=== PATIENT | female | born 1935 | race Caucasian/White ===

== ENCOUNTER 2019-01-23 12:21 | Emergency (ER) | payer MEDICARE, BC ==
[~2019-01-23] VITALS: Ht 167.6 cm; Wt 63.0 kg
[~2019-01-23 12:21] MED LIST: ASPI-1265 PO; CHOL100046 PO; DABI150C PO; DIGO125T97 PO; HYDR-4353 PO; LEFL20TA PO; MELO7.5T12 PO; PANT-47 PO; PRED2.5T4 PO
[2019-01-23 14:46] LABS: BASOPHILS # (AUTO) 0.1 X10'3 (0-0.2); BASOPHILS % (AUTO) 0.7 % (0-1); EOSINOPHILS # (AUTO) 0.1 X10'3 (0-0.9); EOSINOPHILS % (AUTO) 1.8 % (0-6); HEMOGLOBIN 10.5 g/dl (12.0-16.0); LYMPHOCYTES # (AUTO) 0.6 X10'3 (1.1-4.8); LYMPHOCYTES % (AUTO) 7.6 % (21-51); MEAN CORPUSCULAR HEMOGLOBIN 30.7 PG (27.0-31.0); MEAN CORPUSCULAR HGB CONC 31.8 g/dL (33.0-36.5); MEAN CORPUSCULAR VOLUME 96.7 FL (78-98); MEAN PLATELET VOLUME 7.6 FL (7.4-10.4); MONOCYTES # (AUTO) 0.6 X10'3 (0-0.9); MONOCYTES % (AUTO) 7.4 % (2-12); NEUTROPHILS # (AUTO) 6.7 X10'3 (1.8-7.7); NEUTROPHILS % (AUTO) 82.5 % (42-75); PLATELET COUNT 205 X10'3 (140-440); RED BLOOD COUNT 3.42 X10'6 (4.20-5.60); RED CELL DISTRIBUTION WIDTH 17.4 % (11.5-14.5); WHITE BLOOD COUNT 8.1 X10'3 (4.5-11.0)
[2019-01-23 14:56] LABS: ALANINE AMINOTRANSFERASE 11 U/L (12-78); ALBUMIN 2.6 G/DL (3.4-5.0); ALBUMIN/GLOBULIN RATIO 0.7 (1.1-1.5); ANION GAP 8 (8-16); ASPARTATE AMINO TRANSFERASE 23 U/L (10-37); BILIRUBIN,TOTAL 0.7 MG/DL (0.1-1.0); BLOOD UREA NITROGEN 25 MG/DL (7-18); BUN/CREATININE RATIO 26.3 (6.6-38.0); CALCIUM 9.3 MG/DL (8.5-10.1); CHLORIDE 105 MMOL/L (99-107); CREATININE 0.95 MG/DL (0.40-0.90); GLUCOSE 102 MG/DL (70-104); POTASSIUM 3.9 MMOL/L (3.5-5.1); SODIUM 139 MMOL/L (135-145); TOTAL CARBON DIOXIDE 25.9 MMOL/L (24-32); TOTAL PROTEIN 6.5 G/DL (6.4-8.2); eGFR 56 ML/MIN
[2019-01-23 14:57] LABS: ALKALINE PHOSPHATASE 59 IU/L (46-116)
[2019-01-23 16:21] VITALS: BP 123/78
== END 2019-01-23 16:23 | disposition home or self-care (01) ==
LOC: ER 12:22
DX: R20.0 Anesthesia of skin (principal); R53.1 Weakness; E78.00 Pure hypercholesterolemia, unspecified; Z94.7 Corneal transplant status; Z87.891 Personal history of nicotine dependence; Z98.890 Other specified postprocedural states; Z88.0 Allergy status to penicillin; Z88.8 Allergy status to other drugs, medicaments and biological substances; Z79.82 Long term (current) use of aspirin; Z79.01 Long term (current) use of anticoagulants; Z79.899 Other long term (current) drug therapy
CPT/HCPCS: 36415; 70450; 71045; 80053; 84484; 85025; 93005; 99284

== ENCOUNTER 2019-04-09 22:26 | Inpatient (IN) | payer MEDICARE, BC ==
[~2019-04-09] VITALS: Ht 162.6 cm; Wt 75.0 kg
[2019-04-09 23:15] LABS: ALANINE AMINOTRANSFERASE 13 U/L (12-78); ALBUMIN 2.8 G/DL (3.4-5.0); ALBUMIN/GLOBULIN RATIO 0.7 (1.1-1.5); ALKALINE PHOSPHATASE 58 IU/L (46-116); ANION GAP 11 (8-16); ASPARTATE AMINO TRANSFERASE 19 U/L (10-37); BILIRUBIN,TOTAL 0.8 MG/DL (0.1-1.0); BLOOD UREA NITROGEN 26 MG/DL (7-18); BUN/CREATININE RATIO 21.8 (6.6-38.0); CALCIUM 9.8 MG/DL (8.5-10.1); CHLORIDE 106 MMOL/L (99-107); CREATININE 1.19 MG/DL (0.40-0.90); GLUCOSE 117 MG/DL (70-104); LIPASE 56 U/L (73-393); POTASSIUM 4.3 MMOL/L (3.5-5.1); SODIUM 141 MMOL/L (135-145); TOTAL CARBON DIOXIDE 24.1 MMOL/L (24-32); TOTAL PROTEIN 6.8 G/DL (6.4-8.2); eGFR 43 ML/MIN
[2019-04-09 23:43] LABS: BASOPHILS % (AUTO) 0.4 % (0-1); EOSINOPHILS # (AUTO) 0.1 X10'3 (0-0.9); EOSINOPHILS % (AUTO) 1.3 % (0-6); HEMATOCRIT 37.8 % (35.0-45.0); HEMOGLOBIN 11.7 g/dl (12.0-16.0); LYMPHOCYTES # (AUTO) 0.6 X10'3 (1.1-4.8); MEAN CORPUSCULAR HEMOGLOBIN 30.2 PG (27.0-31.0); MEAN CORPUSCULAR HGB CONC 30.9 g/dL (33.0-36.5); MEAN CORPUSCULAR VOLUME 97.9 FL (78-98); MONOCYTES # (AUTO) 0.7 X10'3 (0-0.9); MONOCYTES % (AUTO) 8.2 % (2-12); NEUTROPHILS # (AUTO) 7.3 X10'3 (1.8-7.7); NEUTROPHILS % (AUTO) 83.1 % (42-75); PLATELET COUNT 203 X10'3 (140-440); RED BLOOD COUNT 3.87 X10'6 (4.20-5.60); RED CELL DISTRIBUTION WIDTH 16.8 % (11.5-14.5); WHITE BLOOD COUNT 8.8 X10'3 (4.5-11.0)
[2019-04-10 00:37] LABS: ETHANOL < 0.010 GM/DL (0.0-0.010)
[2019-04-10] MEDS ORDERED: normal saline 1000ml 1,000 ML IV ONE (01:19)
[2019-04-10] MEDS ORDERED: normal saline 1000ML IV soln IVB ONE (01:20)
--- NOTE | 2019-04-10 01:20 | NUR ---
PT AMBULATED TO BEDSIDE COMMODE. PT O2 DROPPED TO 69% WHILE ON NC 3L. NONREBREATHER PLACED TO 10L AND PT RESATURATED TO 95% AND PT PLACED BACK ON NC @1L. NOTIFIED.
[2019-04-10] MEDS ORDERED: DULO20CA50 PO (01:32)
[2019-04-10] MEDS ORDERED: NORT25CA5 PO (01:32)
[2019-04-10] MEDS ORDERED: LOTE5DRO3 EACHEYE (01:32)
[2019-04-10] MEDS ORDERED: ROSU20TA2 PO (01:32)
[2019-04-10] MEDS ORDERED: VIG0.5OS EACHEYE (01:32)
[2019-04-10] MEDS ORDERED: PRED15SO23 PO (01:32)
[2019-04-10 01:36] LABS: CLARITY,URINE CLEAR (Clear); COLOR,URINE AMBER (Yellow); GLUCOSE, URINE NEGATIVE (Neg); KETONES,URINE 15 mg/dl (Neg); LEUKOCYTE ESTERASE ,URINE NEGATIVE (Neg); NITRITES, URINE NEGATIVE (Neg); OCCULT BLOOD,URINE NEGATIVE (Neg); PROTEIN,URINE TRACE mg/dl (Neg)
[2019-04-10 01:38] LABS: UA COLLECTION TYPE CLN CATCH MIDSTREAM
--- NOTE | 2019-04-10 02:00 | NUR ---
PT O2 DECREASED TO 72%, O2 INCREASED TO 4L. MD MADE AWARE.
[2019-04-10 02:35] LABS: BACTERIA,URINE FEW /HPF (Neg); MUCUS STRANDS MANY /LPF (Neg); RBC,URINE 0-2 /HPF (0-2); SQUAMOUS EPITHELIAL CELL,UR FEW /LPF (FEW); WBC,URINE 0-4 /HPF (0-4)
--- NOTE | 2019-04-10 03:09 | NUR ---
PT SLEEPING IN ROOM. SIDE RAILS UP. WILL CONTINUE TO MONITOR.
[2019-04-10] MEDS ORDERED: potassium CL 10mEq/100ml bag 100 ML IV PRN ×2 (05:10)
[2019-04-10] MEDS ORDERED: magnesium Cl slow-release 64mg tablet PO PRN (05:10)
[2019-04-10] MEDS ORDERED: magnesium 4gm in 100ml NS 100 ML IV PRN (05:10)
[2019-04-10] MEDS ORDERED: ondansetron/PF 4mg/2ml inj IV PRN (05:10)
[2019-04-10] MEDS ORDERED: potassium Cl 20 mEq SR tablet PO PRN ×2 (05:10)
[2019-04-10] MEDS ORDERED: magnesium 2GM in 50ml NS 50 ML IV PRN (05:10)
[2019-04-10] MEDS: normal saline 1000ml 1,000 ML IV SCH ×2 (05:18→15:06)
--- NOTE | 2019-04-10 07:27 | NUR ---
Patients daughter in law Elizabeth ([phone]) called and informed of assigned bed at [id number]
[2019-04-10] MEDS ORDERED: NORT10CA81 PO (07:34)
--- NOTE | 2019-04-10 07:42 | NUR ---
Patient helped to bedside commode with assist X 1. Patients O2 sat dropped to 81% on 4 L after ambulation. 3 minutes of laying in bed patients sats came back up to 95% on 4 L
[2019-04-10] MEDS: K and/or MAG REPLACEMENT MC SCH (08:00)
--- NOTE | 2019-04-10 08:42 | NUR ---
received report from Milan in the ER
[2019-04-10 08:45] VITALS: BP 112/53
[2019-04-10 10:46] LABS: ALANINE AMINOTRANSFERASE 10 U/L (12-78); ALBUMIN 2.6 G/DL (3.4-5.0); ALBUMIN/GLOBULIN RATIO 0.7 (1.1-1.5); ALKALINE PHOSPHATASE 50 IU/L (46-116); ANION GAP 9 (8-16); ASPARTATE AMINO TRANSFERASE 21 U/L (10-37); BILIRUBIN,TOTAL 0.6 MG/DL (0.1-1.0); BLOOD UREA NITROGEN 21 MG/DL (7-18); BUN/CREATININE RATIO 24.1 (6.6-38.0); CALCIUM 9.1 MG/DL (8.5-10.1); CHLORIDE 108 MMOL/L (99-107); CREATININE 0.87 MG/DL (0.40-0.90); GLUCOSE 88 MG/DL (70-104); POTASSIUM 4.1 MMOL/L (3.5-5.1); SODIUM 140 MMOL/L (135-145); TOTAL CARBON DIOXIDE 22.6 MMOL/L (24-32); TOTAL PROTEIN 6.3 G/DL (6.4-8.2); eGFR 62 ML/MIN
[2019-04-10 10:47] LABS: BASOPHILS % (AUTO) 0.9 % (0-1); EOSINOPHILS # (AUTO) 0.1 X10'3 (0-0.9); EOSINOPHILS % (AUTO) 2.3 % (0-6); HEMATOCRIT 36.7 % (35.0-45.0); HEMOGLOBIN 11.5 g/dl (12.0-16.0); LYMPHOCYTES # (AUTO) 0.9 X10'3 (1.1-4.8); LYMPHOCYTES % (AUTO) 17.7 % (21-51); MEAN CORPUSCULAR HGB CONC 31.2 g/dL (33.0-36.5); MEAN PLATELET VOLUME 8.3 FL (7.4-10.4); MONOCYTES # (AUTO) 0.7 X10'3 (0-0.9); MONOCYTES % (AUTO) 13.8 % (2-12); NEUTROPHILS # (AUTO) 3.5 X10'3 (1.8-7.7); NEUTROPHILS % (AUTO) 65.3 % (42-75); PLATELET COUNT 181 X10'3 (140-440); RED BLOOD COUNT 3.82 X10'6 (4.20-5.60); RED CELL DISTRIBUTION WIDTH 16.6 % (11.5-14.5); WHITE BLOOD COUNT 5.3 X10'3 (4.5-11.0)
[2019-04-10 18:00] VITALS: BP 157/88
[2019-04-10] MEDS ORDERED: nortriptyline 10mg capsule PO PRN (18:15)
[2019-04-10] MEDS ORDERED: TIMO5DRO32 LEFTEYE (19:50)
[2019-04-10] MEDS: TIMOLOL LEFTEYE SCH ×2 (20:07→21:00)
[2019-04-10] MEDS: LOTEPREDNOL ETABONATE EACHEYE SCH (20:07)
[2019-04-10] MEDS: dabigatran 150mg capsule PO SCH (20:15)
[2019-04-10] MEDS ORDERED: HYDROcodone/acetaminophen 10/325mg tab PO PRN (20:20)
[2019-04-10] MEDS ORDERED: moxifloxacin 0.5% ophthalmic drops 3ml EACHEYE SCH (21:00)
[2019-04-10 22:00] VITALS: BP 136/68
[2019-04-10] MEDS: diatr meglu/diatrizoate 30ml oral sol.-(3 dose) bottle PO SCH (22:00)
[2019-04-11] MEDS: normal saline 1000ml 1,000 ML IV SCH ×2 (01:06→11:35)
--- NOTE | 2019-04-11 06:12 | NUR ---
Problems reprioritized. Patient report given, questions answered & plan of care reviewed with MARY Frias.
[2019-04-11 06:46] LABS: ALBUMIN 2.5 G/DL (3.4-5.0); ANION GAP 7 (8-16); BLOOD UREA NITROGEN 19 MG/DL (7-18); BUN/CREATININE RATIO 20.2 (6.6-38.0); CALCIUM 8.8 MG/DL (8.5-10.1); CHLORIDE 110 MMOL/L (99-107); CREATININE 0.94 MG/DL (0.40-0.90); GLUCOSE 77 MG/DL (70-104); SODIUM 143 MMOL/L (135-145); TOTAL CARBON DIOXIDE 26.4 MMOL/L (24-32); eGFR 57 ML/MIN
[2019-04-11 06:47] LABS: POTASSIUM 4.4 MMOL/L (3.5-5.1)
[2019-04-11 06:49] LABS: BASOPHILS # (AUTO) 0.1 X10'3 (0-0.2); BASOPHILS % (AUTO) 1.3 % (0-1); EOSINOPHILS # (AUTO) 0.3 X10'3 (0-0.9); EOSINOPHILS % (AUTO) 5.5 % (0-6); HEMATOCRIT 33.4 % (35.0-45.0); HEMOGLOBIN 10.6 g/dl (12.0-16.0); LYMPHOCYTES # (AUTO) 0.8 X10'3 (1.1-4.8); LYMPHOCYTES % (AUTO) 16.7 % (21-51); MEAN CORPUSCULAR HEMOGLOBIN 30.2 PG (27.0-31.0); MEAN CORPUSCULAR HGB CONC 31.6 g/dL (33.0-36.5); MEAN CORPUSCULAR VOLUME 95.5 FL (78-98); MEAN PLATELET VOLUME 7.9 FL (7.4-10.4); MONOCYTES # (AUTO) 0.5 X10'3 (0-0.9); MONOCYTES % (AUTO) 9.1 % (2-12); NEUTROPHILS # (AUTO) 3.4 X10'3 (1.8-7.7); NEUTROPHILS % (AUTO) 67.4 % (42-75); PLATELET COUNT 193 X10'3 (140-440); RED CELL DISTRIBUTION WIDTH 17.1 % (11.5-14.5)
[2019-04-11 07:00] VITALS: BP 127/83
[2019-04-11] MEDS: diatr meglu/diatrizoate 30ml oral sol.-(3 dose) bottle PO SCH ×2 (07:57→09:36)
[2019-04-11] MEDS ORDERED: leflunomide 20mg tablet PO SCH (08:00)
[2019-04-11] MEDS: K and/or MAG REPLACEMENT MC SCH (08:00)
[2019-04-11] MEDS ORDERED: pantoprazole 40mg Tablet.DR PO SCH (08:00)
[2019-04-11] MEDS ORDERED: atorvastatin 20mg tablet PO SCH (08:00)
[2019-04-11] MEDS ORDERED: vitamin D (cholecalciferol) 1,000 unit tablet PO SCH (08:00)
[2019-04-11] MEDS ORDERED: predniSONE 5mg tablet PO SCH (08:00)
[2019-04-11] MEDS ORDERED: duloxetine 20mg capsule.DR PO SCH (08:00)
[2019-04-11] MEDS ORDERED: iohexol 300mg/ml 100ml inj. ONE (09:04)
--- NOTE | 2019-04-11 09:30 | NUR ---
spoke with pharmacist regarding lipitor medication clarification for frequency. told to non admin medication only to be given during HS
[2019-04-11 10:00] VITALS: BP 140/73
--- NOTE | 2019-04-11 10:00 | NUR ---
patient up in wheelchair going to CT scan
[2019-04-11] MEDS: LOTEPREDNOL ETABONATE EACHEYE SCH (10:42)
[2019-04-11] MEDS: dabigatran 150mg capsule PO SCH (10:43)
--- NOTE | 2019-04-11 14:30 | NUR ---
all lines discontinued prior to discharge
--- NOTE | 2019-04-11 14:30 | NUR ---
patient discharged at 1430 with family at bedside patient wheelch[facility] to [facility]
== END 2019-04-11 14:43 | disposition home or self-care (01) | DRG 391 ==
LOC: ER 22:26 → ORTHO 4S 04-10 08:07 → CMPBEDREQ 04-10 20:26
PROVIDERS: ADMIT Internal Medicine; ATTEND Family Medicine
DX: K52.9 Noninfective gastroenteritis and colitis, unspecified (principal); N17.0 Acute kidney failure with tubular necrosis; I69.354 Hemiplegia and hemiparesis following cerebral infarction affecting left non-dominant side; K29.00 Acute gastritis without bleeding; Z99.81 Dependence on supplemental oxygen; E78.00 Pure hypercholesterolemia, unspecified; E78.5 Hyperlipidemia, unspecified; I25.10 Atherosclerotic heart disease of native coronary artery without angina pectoris; I73.9 Peripheral vascular disease, unspecified; D64.9 Anemia, unspecified; J44.9 Chronic obstructive pulmonary disease, unspecified; G62.9 Polyneuropathy, unspecified; K21.9 Gastro-esophageal reflux disease without esophagitis; F32.9 Major depressive disorder, single episode, unspecified; I48.0 Paroxysmal atrial fibrillation; G89.29 Other chronic pain; M06.9 Rheumatoid arthritis, unspecified; R09.02 Hypoxemia; Z90.710 Acquired absence of both cervix and uterus; Z95.1 Presence of aortocoronary bypass graft; Z88.0 Allergy status to penicillin; Z88.8 Allergy status to other drugs, medicaments and biological substances; Z94.7 Corneal transplant status; Z79.899 Other long term (current) drug therapy; Z79.82 Long term (current) use of aspirin
CPT/HCPCS: 36415; 71045; 74177; 80048; 80053; 80162; 80320; 81001; 83690; 83735; 84484; 85025; 85610; 87081; 93005; 99285; G0378; J7030; J7512; Q9963; Q9967

== ENCOUNTER 2019-07-17 15:00 | Emergency (ER) | payer MEDICARE, BC ==
[~2019-07-17] VITALS: Ht 167.6 cm; Wt 60.0 kg
[~2019-07-17 15:00] MED LIST changes: -ASPI-1265 PO; -DIGO125T97 PO; +LOTE5DRO3 EACHEYE; +NORT10CA81 PO; +PRED15SO23 PO; +ROSU20TA2 PO; +TIMO5DRO32 LEFTEYE
[2019-07-17 15:17] VITALS: BP 112/61
[2019-07-17 15:49] LABS: BASOPHILS % (AUTO) 0.7 % (0-1); EOSINOPHILS # (AUTO) 0.3 X10'3 (0-0.9); EOSINOPHILS % (AUTO) 5.1 % (0-6); HEMATOCRIT 36.5 % (35.0-45.0); HEMOGLOBIN 11.7 g/dl (12.0-16.0); LYMPHOCYTES # (AUTO) 0.7 X10'3 (1.1-4.8); LYMPHOCYTES % (AUTO) 13.3 % (21-51); MEAN CORPUSCULAR HEMOGLOBIN 29.8 PG (27.0-31.0); MEAN CORPUSCULAR VOLUME 92.9 FL (78-98); MEAN PLATELET VOLUME 7.3 FL (7.4-10.4); MONOCYTES # (AUTO) 0.6 X10'3 (0-0.9); MONOCYTES % (AUTO) 10.6 % (2-12); NEUTROPHILS # (AUTO) 3.8 X10'3 (1.8-7.7); NEUTROPHILS % (AUTO) 70.3 % (42-75); PLATELET COUNT 146 X10'3 (140-440); RED BLOOD COUNT 3.93 X10'6 (4.20-5.60); RED CELL DISTRIBUTION WIDTH 18.5 % (11.5-14.5); WHITE BLOOD COUNT 5.4 X10'3 (4.5-11.0)
[2019-07-17 16:04] LABS: ALBUMIN 2.7 G/DL (3.4-5.0); ALBUMIN/GLOBULIN RATIO 0.7 (1.1-1.5); ALKALINE PHOSPHATASE 56 IU/L (46-116); ANION GAP 12 (8-16); ASPARTATE AMINO TRANSFERASE 20 U/L (10-37); BLOOD UREA NITROGEN 18 MG/DL (7-18); BUN/CREATININE RATIO 19.4 (6.6-38.0); CALCIUM 9.2 MG/DL (8.5-10.1); CHLORIDE 106 MMOL/L (99-107); CREATININE 0.93 MG/DL (0.40-0.90); GLUCOSE 117 MG/DL (70-104); POTASSIUM 3.3 MMOL/L (3.5-5.1); SODIUM 143 MMOL/L (135-145); TOTAL CARBON DIOXIDE 24.8 MMOL/L (24-32); TOTAL PROTEIN 6.4 G/DL (6.4-8.2); eGFR 57 ML/MIN
[2019-07-17] MEDS ORDERED: normal saline 1000ml 1,000 ML IV ONE (16:05)
[2019-07-17 16:09] LABS: ALANINE AMINOTRANSFERASE < 6 U/L (12-78)
[2019-07-17 16:11] LABS: MAGNESIUM 2.1 MG/DL (1.5-2.4)
[2019-07-17] MEDS ORDERED: potassium Cl 20 mEq SR tablet PO ONE (16:30)
== END 2019-07-17 18:55 | disposition home or self-care (01) ==
LOC: ER 15:00
DX: R11.2 Nausea with vomiting, unspecified (principal); R53.1 Weakness; E87.6 Hypokalemia; M25.511 Pain in right shoulder; M25.512 Pain in left shoulder; M79.602 Pain in left arm; M79.601 Pain in right arm; H16.002 Unspecified corneal ulcer, left eye; J44.9 Chronic obstructive pulmonary disease, unspecified; E78.00 Pure hypercholesterolemia, unspecified; I48.91 Unspecified atrial fibrillation; M06.9 Rheumatoid arthritis, unspecified; G62.9 Polyneuropathy, unspecified; G89.29 Other chronic pain; Z88.0 Allergy status to penicillin; Z88.8 Allergy status to other drugs, medicaments and biological substances; Z79.899 Other long term (current) drug therapy; Z98.890 Other specified postprocedural states; Z94.7 Corneal transplant status
CPT/HCPCS: 36415; 71045; 80053; 83735; 83880; 84484; 85025; 93005; 96360; 99284; J7030